=== PATIENT | male | born 1945 ===

== ENCOUNTER 2019-09-10 16:39 | Emergency (ER) | payer MEDICARE ==
[2019-09-10] MEDS ORDERED: SODIUM CHLORIDE 0.9% 1000 ML 1,000 ML ONE (17:30)
[2019-09-10] MEDS ORDERED: SODIUM CHLORIDE 0.9% 1000 ML 1,000 ML IV ONE (17:41)
[2019-09-10 20:14] LABS: Basophils % (Auto) 0.6 % (0.0-1.8); Eosinophils % (Auto) 0.1 % (0.0-4.3); Hematocrit 35.2 % (35.5-45.6); Hemoglobin 11.6 gm/dl (11.8-15.2); Lymphocytes # (Auto) 0.5 K/mm3 (1.2-5.4); Lymphocytes % (Auto) 7.2 % (13.4-35.0); Mean Corpuscular HGB Conc 33 % (32-34); Mean Corpuscular Volume 79 fl (84-94); Monocytes # (Auto) 0.4 K/mm3 (0.0-0.8); Monocytes % (Auto) 6.8 % (0.0-7.3); Platelet Count 205 K/mm3 (140-440); Red Blood Count 4.44 M/mm3 (3.65-5.03); Red Cell Distribution Width 15.4 % (13.2-15.2)
[2019-09-10 20:37] LABS: BUN/Creatinine Ratio 17; Blood Urea Nitrogen 15 mg/dL (9-20); Calcium 8.4 mg/dL (8.4-10.2); Hemolysis Index 3
--- NOTE | 2019-09-10 21:05 | Emergency Department Report ---
{null, ED General Adult HPI - General Chief complaint: Dizziness Stated complaint: SNYNCOPE/LOW BP Time Seen by Provider: 09/10/19 17:21 Source: patient, EMS Mode of arrival: Stretcher Limitations: No Limitations - History of Present Illness Initial comments: Patient is a 74-year-old -[place] male with a past medical history of sickle cell trait and asthma who is presenting with dizziness. Patient states that he was at home he got up to go to the bathroom and the next thing he knows he had passed out and was lying on the floor. Denies any injury. Patient states he has had not had any recent nausea vomiting or diarrhea. He states he has been eating. Patient noted to have a blood pressure of 90/54 per EMS. IV fluids were started prior to arrival. He denies chest pain shortness of breath or focal neurological deficits at this time. Severity scale (0 -10): 0 - Related Data Allergies Allergy/AdvReac Type Severity Reaction Status Date / Time No Known Allergies Allergy Verified 09/10/19 17:30 ED Review of Systems ROS: Stated complaint: SNYNCOPE/LOW BP Other details as noted in HPI Comment: All other systems reviewed and negative ED Past Medical Hx - Past Medical History Hx Sickle Cell Disease: (trait) Hx Asthma: Yes - Surgical History Past Surgical History?: No - Social History Smoking Status: Current Every Day Smoker Substance Use Type: None ED Physical Exam - General Limitations: No Limitations General appearance: alert, in no apparent distress - Head Head exam: Present: atraumatic, normocephalic - Eye Eye exam: Present: normal appearance - ENT ENT exam: Present: normal orophraynx, mucous membranes moist - Neck Neck exam: Present: normal inspection - Respiratory Respiratory exam: Present: normal lung sounds bilaterally. Absent: respiratory distress, wheezes, rales, rhonchi - Cardiovascular Cardiovascular Exam: Present: regular rate, normal rhythm, normal heart sounds. Absent: systolic murmur, diastolic murmur, rubs, gallop - GI/Abdominal GI/Abdominal exam: Present: soft, normal bowel sounds. Absent: distended, tend erness, guarding, rebound - Rectal Rectal exam: Present: deferred - Extremities Exam Extremities exam: Present: normal inspection - Back Exam Back exam: Present: normal inspection - Neurological Exam Neurological exam: Present: alert, oriented X3 - Psychiatric Psychiatric exam: Present: normal affect, normal mood - Skin Skin exam: Present: warm, dry, intact, normal color. Absent: rash ED Course Vital Signs 09/10/19 09/10/19 09/10/19 17:07 17:10 17:21 Temperature 97.6 F Pulse Rate 71 71 Respiratory 20 16 Rate Blood Pressure [Right] O2 Sat by Pulse 98 Oximetry 09/10/19 09/10/19 09/10/19 17:23 18:10 20:00 Temperature Pulse Rate 73 69 Respiratory 16 22 Rate Blood Pressure 95/40 122/68 125/59 [Right] O2 Sat by Pulse 97 96 Oximetry ED Medical Decision Making - Lab Data Result diagrams: 09/10/19 19:50 09/10/19 19:50 - Medical Decision Making Vital Signs 09/10/19 09/10/19 09/10/19 17:07 17:10 17:21 Temperature 97.6 F Pulse Rate 71 71 Respiratory 20 16 Rate Blood Pressure [Right] O2 Sat by Pulse 98 Oximetry 09/10/19 09/10/19 09/10/19 17:23 18:10 20:00 Temperature Pulse Rate 73 69 Respiratory 16 22 Rate Blood Pressure 95/40 122/68 125/59 [Right] O2 Sat by Pulse 97 96 Oximetry Patient was given IV fluids prior to arrival and here in emergency department. Patient is maintaining a blood pressure in the 120s after fluids were given. Patient was able to ambulate on his own without assistance and is feeling well. Laboratory studies unremarkable. Patient will be discharged home. Critical care attestation.: If time is entered above; I have spent that time in minutes in the direct care of this critically ill patient, excluding procedure time. ED Disposition Clinical Impression: Orthostatic hypotension Syncope Qualifiers: Syncope type: unspecified Qualified Code(s): R55 - Syncope and collapse Disposition: DC-01 TO HOME OR SELFCARE Is pt being admited?: No Does the pt Need Aspirin: No Condition: Stable Instructions: Syncope (ED) Referrals: PRIMARY CARE, [Primary Care Provider] - 3-5 Days Time of Disposition: 21:07 }
[2019-09-10 21:12] VITALS: BP 131/67
== END 2019-09-11 00:49 | disposition home or self-care (01) ==
LOC: ED 16:39
DX: I95.1 Orthostatic hypotension (principal); J45.909 Unspecified asthma, uncomplicated; F17.200 Nicotine dependence, unspecified, uncomplicated
CPT/HCPCS: 36415; 80048; 85025; 96360; 99284; J7030